=== PATIENT | female | born 1970 | race Hispanic/Latino ===

== ENCOUNTER 2021-12-04 15:37 | Emergency (ER) | payer BC, OTHER ==
[~2021-12-04] VITALS: Ht 172.7 cm; Wt 86.2 kg
[~2021-12-04 15:37] MED LIST: GLUCOPHAGE1000 MG PO; LISINOPRIL20 MG PO
== END 2021-12-04 19:30 | disposition home or self-care (01) ==
LOC: ER 15:45
DX: R20.0 Anesthesia of skin (principal); R20.2 Paresthesia of skin; E11.9 Type 2 diabetes mellitus without complications; E78.5 Hyperlipidemia, unspecified; Z86.16 Personal history of COVID-19
CPT/HCPCS: 70450; 99283

== ENCOUNTER 2022-03-14 21:55 | Emergency (ER) | payer OTHER ==
[~2022-03-14] VITALS: Ht 172.7 cm; Wt 86.2 kg
[2022-03-14] MEDS ORDERED: KETOROLAC TROMETHAMINE 60 MG/2 ML VIAL IM STA (22:11)
[2022-03-14] MEDS ORDERED: KETOROLAC TROMETHAMINE 60 MG/2 ML VIAL ONE (22:28)
[2022-03-14] MEDS ORDERED: PREDNISONE20 MG PO (23:26)
[2022-03-14] MEDS ORDERED: ACETAMINOPHEN-1 EAC4 PO (23:26)
== END 2022-03-14 23:30 | disposition home or self-care (01) ==
LOC: ER 22:00
DX: M54.32 Sciatica, left side (principal); E11.9 Type 2 diabetes mellitus without complications; E78.5 Hyperlipidemia, unspecified; Z88.6 Allergy status to analgesic agent; Z98.890 Other specified postprocedural states
CPT/HCPCS: 72131; 99283; J1885

== ENCOUNTER 2024-02-20 07:59 | Inpatient (IN) | payer OTHER ==
[~2024-02-20] VITALS: Ht 172.7 cm; Wt 86.2 kg
[~2024-02-20 07:59] MED LIST changes: +ACETAMINOPHEN-1 EAC4 PO; +ASPIRIN81 MG PO; +BUPROPION HCL100 MG PO; +FLONASE ALLERG9.9 ML INH; +GLIPIZIDE ER5 MG PO; +HUMALOG MI100 UNIT/2 SQ; +LEVEMIR100 UNIT/1; +LEVEMIR100 UNIT/1 PO; +LEVETIRACETAM250 MG PO; +LISINOPRIL-HCT1 EAC2; +LYRICA100 MG PO; +NEURONTIN300 MG PO; +OMEPRAZOLE40 MG PO; +PREDNISONE20 MG PO
[2024-02-20 08:03] VITALS: PULSE 87; RESP 17; TEMP 97.1
[2024-02-20] MEDS: ONDANSETRON HCL INJ 2MG/ML 2ML 2 MG/ML VIAL IV STA (08:59)
[2024-02-20] MEDS: KETOROLAC TROMETHAMINE 30 MG/ML VIAL IV STA (08:59)
[2024-02-20] MEDS: SODIUM CHLORIDE 0.9% 1000ML 1,000 ML IV STA (09:00)
[2024-02-20 09:04] LABS: BASOPHILS % 0.4 % (0.0-1.0); EOSINOPHILS # (AUTO) 0.1 (0.0-0.4); EOSINOPHILS % 1.1 % (0.0-6.0); HEMATOCRIT 37.3 % (34.2-44.1); HEMOGLOBIN 12.3 g/dL (12.0-16.0); LYMPHOCYTES # (AUTO) 2.5 (1.0-3.2); LYMPHOCYTES % 21.7 % (18.0-39.1); MEAN CORPUSCULAR HEMOGLOBIN 29.1 pg (28-32); MEAN CORPUSCULAR VOLUME 88.2 fL (81-99); MONOCYTES # (AUTO) 0.6 (0.2-0.8); MONOCYTES % 4.8 % (4.4-11.3); NEUTROPHILS # (AUTO) 8.1 (2.1-6.9); NEUTROPHILS % 71.6 % (38.7-80.0); PLATELET COUNT 244 x10e3/uL (140-360); RED BLOOD COUNT 4.23 x10e6/uL (3.6-5.1); WHITE BLOOD COUNT 11.36 x10e3/uL (4.8-10.8)
[2024-02-20 09:12] LABS: BACTERIA,URINE FEW /HPF; BILIRUBIN,URINE NEGATIVE (NEGATIVE); CLARITY,URINE TURBID (CLEAR); COLOR,URINE YELLOW (YELLOW); EPITHELIAL CELLS,URINE MANY /LPF; GLUCOSE, URINE NEGATIVE (NEGATIVE); KETONES,URINE NEGATIVE (NEGATIVE); LEUKOCYTE ESTERASE ,URINE NEGATIVE (NEGATIVE); NITRITE,URINE NEGATIVE (NEGATIVE); PH,URINE 7.5 (5 - 7); PROTEIN,URINE DIPSTICK NEGATIVE (NEGATIVE); RBC,URINE 0-5 /HPF (0-5); URINE UROBILINOGEN 0.2 mg/dL (0.2 - 1); WBC,URINE (MAN) 0-5 /HPF (0-5)
[2024-02-20 09:20] LABS: INR 0.86; PARTIAL THROMBOPLASTIN TIME 28.9 seconds (23.8-35.5); PROTHROMBIN TIME 12.2 seconds (11.9-14.5)
[2024-02-20 09:28] LABS: ALBUMIN 4.3 g/dL (3.5-5.0); ALBUMIN/GLOBULIN RATIO 1.1 (0.8-2.0); ANION GAP 16.5 mmol/L (8-16); BILIRUBIN,TOTAL 0.7 mg/dL (0.2-1.2); CALCIUM 11.6 mg/dL (8.4-10.2); CREATININE, SERUM 0.85 mg/dL (0.57-1.11); POTASSIUM 3.5 mmol/L (3.5-5.1); TOTAL PROTEIN 8.2 g/dL (6.5-8.1)
[2024-02-20] MEDS ORDERED: IOPAMIDOL 370 MG/ML 100 ML INFUS..BTL INJ ONE (09:39)
[2024-02-20] MEDS: Morphine 4mg INJECTION 4 MG/ML INJ IV PRN (11:34)
[2024-02-20] MEDS: ONDANSETRON HCL INJ 2MG/ML 2ML 2 MG/ML VIAL IV PRN (11:34)
[2024-02-20] MEDS: SODIUM CHLORIDE 0.9% 1000ML 1,000 ML IV SCH (11:35)
[2024-02-20 12:34] VITALS: BP 134/66; PULSE 65; RESP 16; TEMP 97.8; O2SAT 100
[2024-02-20] MEDS ORDERED: HYDRALAZINE HCL 20 MG/ML VIAL IV PRN (12:45)
[2024-02-20] MEDS ORDERED: DEXTROSE 50% SYRINGE 50 ML IV PRN (12:45)
[2024-02-20 13:00] VITALS: BP 134/66; PULSE 65; RESP 16; TEMP 97.8; O2SAT 100
[2024-02-20 15:55] VITALS: BP 117/70; PULSE 61; RESP 18; TEMP 98; O2SAT 98
[2024-02-20] MEDS: INSULIN LISPRO 100 UNIT/1 ML 3ML VIAL SQ SCH (16:30)
[2024-02-20] MEDS: FLUTICASONE PROPIONATE NASAL SPRAY NS SCH (17:00)
[2024-02-20] MEDS ORDERED: SCOPOLAMINE 1 MG PATCH ONE (17:19)
[2024-02-20] MEDS ORDERED: BUPIVACAINE HCL 0.5% INJ 30 ML VIAL INJ ONE (17:23)
[2024-02-20 20:00] VITALS: BP 135/74; PULSE 72; RESP 16; TEMP 98.6; O2SAT 99
[2024-02-20] MEDS: PROMETHAZINE 12.5MG/ NACL 0.9% 12.5 MG/50 ML BAG IV PRN (23:38)
[2024-02-21] VITALS: BP 109/56; PULSE 73; RESP 18; TEMP 97.8; TEMP 98.6; O2SAT 96
[2024-02-21 04:00] VITALS: BP 112/61; PULSE 64; RESP 18; TEMP 98.6; O2SAT 100
[2024-02-21 07:35] VITALS: BP 103/58; PULSE 65; RESP 17; TEMP 97.3; O2SAT 100
[2024-02-21 08:04] LABS: BASOPHILS % 0.1 % (0.0-1.0); HEMATOCRIT 31.7 % (34.2-44.1); HEMOGLOBIN 10.4 g/dL (12.0-16.0); LYMPHOCYTES # (AUTO) 1.1 (1.0-3.2); LYMPHOCYTES % 10.6 % (18.0-39.1); MEAN CORPUSCULAR HEMOGLOBIN 29.2 pg (28-32); MEAN CORPUSCULAR HGB CONC 32.8 g/dL (31-35); MONOCYTES # (AUTO) 0.2 (0.2-0.8); MONOCYTES % 1.8 % (4.4-11.3); NEUTROPHILS # (AUTO) 8.9 (2.1-6.9); NEUTROPHILS % 87.1 % (38.7-80.0); PLATELET COUNT 207 x10e3/uL (140-360); RED BLOOD COUNT 3.56 x10e6/uL (3.6-5.1); RED CELL DISTRIBUTION WIDTH 12.8 % (11.7-14.4); WHITE BLOOD COUNT 10.21 x10e3/uL (4.8-10.8)
[2024-02-21 08:37] LABS: ALBUMIN 3.3 g/dL (3.5-5.0); ANION GAP 11.7 mmol/L (8-16); BILIRUBIN,TOTAL 0.5 mg/dL (0.2-1.2); CALCIUM 8.9 mg/dL (8.4-10.2); CREATININE, SERUM 0.77 mg/dL (0.57-1.11); POTASSIUM 3.7 mmol/L (3.5-5.1); TOTAL PROTEIN 6.6 g/dL (6.5-8.1)
[2024-02-21] MEDS: PANTOPRAZOLE SODIUM 20 MG TABLET.DR PO SCH (09:34)
[2024-02-21] MEDS: GLIPIZIDE 5 MG TAB ER PO SCH (09:34)
[2024-02-21] MEDS: BUPROPION HCL 100 MG TAB PO SCH (09:34)
[2024-02-21 09:53] VITALS: BP 103/58; PULSE 65; RESP 17; TEMP 97.3; O2SAT 100
[2024-02-21 11:42] VITALS: BP 112/65; PULSE 61; RESP 18; TEMP 97.8; O2SAT 100
[2024-02-21 16:01] VITALS: BP 111/63; PULSE 95; RESP 19; TEMP 98.1; O2SAT 96
[2024-02-21] MEDS ORDERED: TYLENOL #3 PO (16:20)
== END 2024-02-21 18:10 | disposition home or self-care (01) | DRG 399 ==
LOC: ER 08:06 → ERHOLD 10:33 → MED/SURG 12:27
PROVIDERS: ADMIT Internal Medicine; ATTEND Internal Medicine
PROC: 0DTJ4ZZ Resection of Appendix, Percutaneous Endoscopic Approach (ICD-10-PCS; principal; 2024-02-20 17:29)
DX: K35.80 Unspecified acute appendicitis (principal); I10 Essential (primary) hypertension; E11.9 Type 2 diabetes mellitus without complications; E78.00 Pure hypercholesterolemia, unspecified; K76.9 Liver disease, unspecified; Z79.4 Long term (current) use of insulin; Z79.82 Long term (current) use of aspirin; Z79.84 Long term (current) use of oral hypoglycemic drugs; Z79.51 Long term (current) use of inhaled steroids; Z90.710 Acquired absence of both cervix and uterus; Z90.49 Acquired absence of other specified parts of digestive tract; Z85.43 Personal history of malignant neoplasm of ovary; Z90.722 Acquired absence of ovaries, bilateral; Z83.3 Family history of diabetes mellitus
CPT/HCPCS: 36415; 74177; 80053; 81001; 82948; 83690; 83735; 85025; 85610; 85730; 87086; 88304; 96372; 99284; J0692; J1885; J2270; J2405; J2470; J2550; J7030; Q9967